=== PATIENT | male | born 1985 | race Caucasian/White ===

== ENCOUNTER 2021-07-16 12:47 | Observation (INO) ==
[2021-07-16] MEDS ORDERED: Ondansetron 4 MG/2 ML VIAL IVP PRN (14:46)
[2021-07-16] MEDS ORDERED: Naloxone 0.4 MG/ML INJ IVP PRN (14:46)
[2021-07-16] MEDS: Furosemide 20 MG TABLET PO SCH (17:05)
[2021-07-16] MEDS: Sucralfate 1 GM TABLET PO SCH (17:06)
[2021-07-16] MEDS: carvediloL 6.25 MG TABLET PO SCH (17:06)
[2021-07-16] MEDS: Pantoprazole 40 MG VIAL IVP SCH (20:53)
[2021-07-17] MEDS: Sucralfate 1 GM TABLET PO SCH (05:21)
[2021-07-17] MEDS: Pantoprazole 40 MG VIAL IVP SCH (05:21)
[2021-07-17 06:01] LABS: Basophils # 0.1 K/mcL (0.0-0.2); Basophils % 0.5 %; Eosinophils # 0.5 K/mcL (0.0-0.6); Eosinophils % 4.2 %; Hematocrit 40.2 % (37.5-50.1); Hemoglobin 13.3 g/dL (12.9-16.9); Immature Granulocytes % 0.3 % (0-4); Lymphocytes # 1.7 K/mcL (0.6-4.6); Lymphocytes % 13.1 %; Mean Corpuscular HGB Conc 33.1 g/dL (31.6-35.5); Mean Corpuscular Hemoglobin 29.1 pg (28.0-33.3); Mean Platelet Volume 10.2 fL (9.4-12.4); Monocytes # 1.7 K/mcL (0.0-1.3); Monocytes % 13.5 %; Neutrophils # 8.6 K/mcL (1.6-8.9); Platelet Count 227 K/mcL (140-400); Red Blood Count 4.57 M/mcL (4.19-5.50); Segmented Neutrophils % 68.4 %; White Blood Count 12.6 K/mcL (4.3-11.1)
[2021-07-17 06:24] LABS: BUN/Creatinine Ratio 20 (6-26); Blood Urea Nitrogen 20 mg/dL (6-20); Calcium 9.5 mg/dL (8.6-10.3); Carbon Dioxide 29 mEq/L (23-29); Chloride 97 mEq/L (98-107); Glucose 110 mg/dL (70-105); Osmolality,Calculated 281 (280-300); Potassium 4.3 mEq/L (3.5-5.1); Sodium 134 mEq/L (136-145); eGFR For African Americans > 60 (> 60); eGFR For Non-African Americans > 60 (> 60)
[2021-07-17 06:25] LABS: Albumin 4.3 g/dL (3.5-5.7); Albumin/Globulin Ratio 1.4 (1.1-2.2); Bilirubin,Direct 0.2 mg/dL (0.0-0.2); Bilirubin,Indirect 0.8 mg/dL (0.0-1.0); Total Protein 7.3 g/dL (6.4-8.9)
[2021-07-17] MEDS: carvediloL 6.25 MG TABLET PO SCH (08:38)
[2021-07-17] MEDS: Furosemide 20 MG TABLET PO SCH (08:38)
[2021-07-17] MEDS ORDERED: *HR* Digoxin 0.125 MG TABLET PO SCH (09:00)
[2021-07-17] MEDS ORDERED: Aspirin Enteric Coated 81 MG Tablet PO SCH (09:00)
[2021-07-17] MEDS ORDERED: lisinopriL 10 MG TABLET PO SCH (09:00)
[2021-07-17 09:25] LABS: Troponin I 0.04 ng/mL (< 0.04)
[2021-07-17 10:17] VITALS: BP 113/76; PULSE 88; TEMP 98.7; O2SAT 96
== END 2021-07-17 12:17 | disposition home or self-care (01) ==
LOC: EMEROOARM 12:47 → 3BNU 12:47 → SUATTDRO 14:22 → 3BNU 14:50
PROVIDERS: ADMIT Hospitalist; ATTEND Internal Medicine